=== PATIENT | male | born 1995 | race American Indian/Alaskan Native ===

== ENCOUNTER 2017-02-08 06:38 | Emergency (ER) | payer MEDICAID, OTHER ==
--- NOTE | 2017-02-08 07:00 | EDM.PDOC ---
<Joseph Patrick - Last Filed: 02/08/17 07:11> ED HPI GENERAL MEDICAL PROBLEM - General Chief Complaint: Drug or Alcohol Abuse Stated Complaint: IN BY AMBULANCE Time Seen by Provider: 02/08/17 06:54 Source of Information: Reports: EMS History Limitations: Reports: Intoxication - History of Present Illness INITIAL COMMENTS - FREE TEXT/NARRATIVE: EMS states pt states drank captain herring and pt's friends got worried since pt kept going to sleep and unsteady. - Related Data Allergies Allergy/AdvReac Type Severity Reaction Status Date / Time No Known Allergies Allergy Unverified 05/13/15 18:39 Home Meds: Home Meds . [Unable to Verify Home Med List] 02/08/17 [History] Past Medical History - Past Health History Medical/Surgical History: Denies Medical/Surgical History Social & Family History - Tobacco Use Smoking Status *Q: Never Smoker Second Hand Smoke Exposure: No - Recreational Drug Use Recreational Drug Use: No ED ROS GENERAL - Review of Systems Review Of Systems: ROS reveals no pertinent complaints other than HPI. ED EXAM, BEHAVIORAL HEALTH - Physical Exam Exam: See Below Exam Limited By: No Limitations General Appearance: Other (intox sleepy arousable) Eye Exam: Bilateral Eye: PERRL (pupils ess ER @ 4mm) Ears: Hearing Grossly Normal Throat/Mouth: No Airway Compromise Head: Atraumatic Neck: Non-Tender, Full Range of Motion Respiratory/Chest: No Respiratory Distress, Lungs Clear, Normal Breath Sounds Cardiovascular: Regular Rate, Rhythm GI/Abdominal: Soft, Non-Tender Neurological: Other (intox) Psychiatric: Other (intox) Skin Exam: Warm, Dry COURSE, BEHAVIORAL HEALTH COMP - Course Vital Signs: Last Vital Signs Temp 36.2 C 02/08/17 06:44 Pulse 63 02/08/17 08:35 Resp 18 02/08/17 08:35 BP 96/59 L 02/08/17 08:35 Pulse Ox 97 02/08/17 08:35 Orders, Labs, Meds: Active Orders 24 hr Category Date Time Status Sodium Chloride 0.9% [Normal Saline] 1,000 ml Med 02/08/17 10:06 Active IV .BOLUS Medication Orders Sodium Chloride (Normal Saline) 1,000 mls @ 999 mls/hr IV .BOLUS ONE Stop: 02/08/17 11:06 Last Admin: 02/08/17 10:10 Dose: 999 mls/hr Laboratory Tests 02/08/17 02/08/17 Range/Units 06:55 06:55 WBC 4.2 L (5.0-10.0) 10^3/uL RBC 5.27 (4.6-6.2) 10^6/uL Hgb 15.7 (14.0-18.0) g/dL Hct 44.2 (40.0-54.0) % MCV 83.9 (80-100) fL MCH 29.8 (27.0-34.0) pg MCHC 35.5 H (33.0-35.0) g/dL Plt Count 215 (150-450) 10^3/uL Neut % (Auto) 47.4 (42.2-75.2) % Lymph % (Auto) 43.3 (20.5-50.1) % [place] % (Auto) 7.6 (2-8) % Eos % (Auto) 1.2 (1.0-3.0) % Baso % (Auto) 0.5 (0.0-1.0) % Sodium 143 (135-145) mmol/L Potassium 3.3 L (3.6-5.0) mmol/L Chloride 109 (101-111) mmol/L Carbon Dioxide 22.0 (21.0-31.0) mmol/L Anion Gap 15.3 BUN 7 (7-18) mg/dL Creatinine 0.8 (0.6-1.3) mg/dL Est Cr Clr Drug Dosing 125.80 mL/min Estimated GFR (MDRD) > 60 BUN/Creatinine Ratio 8.75 Glucose 99 (74-105) mg/dL Calcium 7.8 L (8.4-10.2) mg/dl Total Bilirubin 1.4 H (0.2-1.0) mg/dL AST 20 (10-42) IU/L ALT 13 (10-60) IU/L Alkaline Phosphatase 67 (42-121) IU/L Total Protein 7.4 (6.7-8.2) g/dl Albumin 4.5 (3.2-5.5) g/dl Globulin 2.9 Albumin/Globulin Ratio 1.55 Ethyl Alcohol 304 mg/dL Medications Generic Name Dose Route Start Last Admin Trade Name Freq PRN Reason Stop Dose Admin Sodium Chloride 1,000 mls @ 999 mls/hr 02/08/17 10:06 02/08/17 10:10 Normal Saline IV 02/08/17 11:06 999 mls/hr .BOLUS ONE Administration Departure - Departure Disposition: Home, Self-Care 01 Clinical Impression: Alcohol intoxication Qualifiers: Complication of substance-induced condition: uncomplicated Qualified Code(s): F10.920 - Alcohol use, unspecified with intoxication, uncomplicated - Discharge Information Instructions: Alcohol Intoxication, [id number] Forms: ED Department Discharge Additional Instructions: Drink lots of gatorade or powerade and lots of fluids over the next few days. Cautious on alcohol intake as not only [place]st[place] effects are concerning but also acutely can kill you if you have too much and have respiratory depression or aspiration. If you ever are looking for alcohol treatment we are always here to assist is guidance for that. Return to the ED if new or worsening symptoms. Follow up with primary care provider in the next 4-6 days if any problems. home with family today. - My Orders Last 24 Hours: My Active Orders 02/08/17 10:06 Sodium Chloride 0.9% [Normal Saline] 1,000 ml IV .BOLUS - Assessment/Plan Last 24 Hours: My Active Orders 02/08/17 10:06 Sodium Chloride 0.9% [Normal Saline] 1,000 ml IV .BOLUS <Andres Sheikh - Last Filed: 02/08/17 10:51> COURSE, BEHAVIORAL HEALTH COMP - Course Vital Signs: Last Vital Signs Temp 36.2 C 02/08/17 06:44 Pulse 63 02/08/17 08:35 Resp 18 02/08/17 08:35 BP 96/59 L 02/08/17 08:35 Pulse Ox 97 02/08/17 08:35 Vital Signs 02/08/17 02/08/17 02/08/17 06:44 08:06 08:35 Temperature [ 36.2 C Temporal] Pulse, 95 61 63 Peripheral [ Pulse Oximetry] Respiratory 20 16 18 Rate Blood Pressure 100/67 96/59 L [Left Upper Arm ] Blood Pressure 114/68 [Right Upper Arm] O2 Sat by Pulse 100 100 97 Oximetry Re-Assessment/Re-Exam: Assumed of patient at 0730. Pt resting quietly on the cot. Regular respiratory rate, no snoring respirations. Alerts to painful stimuli and quickly back to sleeping. Alcohol 304 will monitor and observe. 10:50 patient is alert ambulatory at this time. He is without complaints. He relates that he drank alcohol quite heavily last night and denies any other substance ingestion. He denies any assistance in all treatment at this time. Departure - Departure Time of Disposition: 10:47 - My Orders Last 24 Hours: My Active Orders 02/08/17 10:06 Sodium Chloride 0.9% [Normal Saline] 1,000 ml IV .BOLUS - Assessment/Plan Last 24 Hours: My Active Orders 02/08/17 10:06 Sodium Chloride 0.9% [Normal Saline] 1,000 ml IV .BOLUS Assessment:: alcohol intoxication Plan: Drink lots of gatorade or powerade and lots of fluids over the next few days. Cautious on alcohol intake as not only retirement effects are concerning but also acutely can kill you if you have too much and have respiratory depression or aspiration. If you ever are looking for alcohol treatment we are always here to assist is guidance for that. Return to the ED if new or worsening symptoms. Follow up with primary care provider in the next 4-6 days if any problems. home with family today.
[2017-02-08 07:29] LABS: CHLORIDE,CL 109 mmol/L (101-111); SODIUM,NA 143 mmol/L (135-145)
[2017-02-08 08:36] VITALS: BP 96/59
[2017-02-08] MEDS ORDERED: Sodium Chloride 0.9% 1,000 ML IV ONE (10:06)
== END 2017-02-08 11:19 | disposition home or self-care (01) ==
LOC: DL.ED 06:38
DX: F10.920 Alcohol use, unspecified with intoxication, uncomplicated (principal)
CPT/HCPCS: 36415; 80053; 85025; 96365; 99284; G0480; J7030; 99282